=== PATIENT | male | born 1990 | race American Indian/Alaskan Native ===

== ENCOUNTER 2020-02-28 20:27 | Emergency (ER) | payer OTHER ==
[2020-02-28 20:39] VITALS: BP 139/80
--- NOTE | 2020-02-28 20:52 | Emergency Department Report ---
Chief Complaint: Headache Stated Complaint: THROAT,NECK,HEAD PAIN,FEVER Time Seen by Provider: 02/28/20 20:39 - Exam Vital Signs: Vital Signs 02/28/20 20:37 Temperature 98.4 F Pulse Rate 71 Respiratory 18 Rate Blood Pressure 139/80 O2 Sat by Pulse 100 Oximetry MSE screening note: Focused history and physical exam performed. Due to findings the following was ordered: ED Disposition for MSE Clinical Impression: Nasal congestion Disposition: MED SCREENING EXAM-LEFT Is pt being admited?: No Does the pt Need Aspirin: No Condition: Stable Referrals: PRIMARY CARE, [Primary Care Provider] - 3-5 Days
--- NOTE | 2020-02-28 21:01 | Emergency Department Report ---
Chief Complaint: Headache Stated Complaint: THROAT,NECK,HEAD PAIN,FEVER Time Seen by Provider: 02/28/20 20:39 - HPI History of Present Illness: 29-year-old -Iranian male presents to the emergency room stating that his job sent him here because they thought he did not feel good. Patient states that he has some nasal congestion. Patient denies any fever chills denies any shortness of breath chest pain nausea vomiting diarrhea. - Exam Vital Signs: Vital Signs 02/28/20 02/28/20 20:37 20:38 Temperature 98.4 F 98.4 F Pulse Rate 71 74 Respiratory 18 18 Rate Blood Pressure 139/80 O2 Sat by Pulse 100 100 Oximetry Physical Exam: Gen: alert oriented NAD Cardic: regular rate and rhythm no murmurs appreciated Resp: Clear to auscultation bilateral no wheezing no rales or rhonchi. Abdomen: Soft nontender nondistended normal bowel sounds. Mini neuro: Normal finger to nose exam, [id number] normal, Romberg neg, strengh 4/5 all extrimities, Alert and oriented time 3 Crainal nerve II-IIX intact MSE screening note: Focused history and physical exam performed. Due to findings the following was ordered: 29-year-old -Iranian male presents to the emergency room stating that his job sent him here because they thought he did not feel good. Patient states that he has some nasal congestion. Patient denies any fever chills denies any shortness of breath chest pain nausea vomiting diarrhea. ED Disposition for MSE Clinical Impression: Nasal congestion Disposition: Z- MED SCREENING EXAM-LEFT Is pt being admited?: No Does the pt Need Aspirin: No Condition: Stable Instructions: Acute Bacterial Rhinosinusitis (ED), Loratadine/Pseudoephedrine (By mouth) Additional Instructions: Try taking [id number] Claritin-D as well as Flonase and or Nasonex. You can take Tylenol or ibuprofen as needed for pain. Follow-up with your primary care provider or urgent care. Referrals: PRIMARY CARE, [Primary Care Provider] - 3-5 Days CJ MEJIA MD [Staff Physician] - 3-5 Days Forms: Work/School Release Form(ED)
== END 2020-02-28 21:06 | disposition left against medical advice (07) ==
LOC: ED 20:27
DX: R09.81 Nasal congestion (principal); R07.0 Pain in throat; M54.2 Cervicalgia; R51 Headache
CPT/HCPCS: 99282

== ENCOUNTER 2020-04-01 18:03 | Emergency (ER) | payer OTHER ==
--- NOTE | 2020-04-01 19:29 | XRay Report ---
Left foot, 3 views INDICATION: Pain following injury today FINDINGS: The joint space is maintained. There is no fracture or dislocation. No spurring or arthriti c change. No bone lesion or periostitis. No significant abnormality. IMPRESSION: Negative study Signer Name: Ephraim Lund MD Signed: 04/01/2020 7:24 PM Workstation Name: [id number]
[2020-04-01] MEDS ORDERED: oxyCODONE /ACETAMINOPHEN 5-325MG TAB PO ONE (19:38)
[2020-04-01 19:49] VITALS: BP 128/69
--- NOTE | 2020-04-01 19:49 | Emergency Department Report ---
ED Lower Extremity HPI - General Chief Complaint: Extremity Injury, Lower Stated Complaint: LEFT FOOT PAIN Time Seen by Provider: 04/01/20 19:37 Source: patient Mode of arrival: Ambulatory Limitations: No Limitations - History of Present Illness Initial Comments: [id number] male was at work when a candida fell on his foot causing a crush injury with those ago that was followed by pain and swelling worse with ambulation and palpation. Reports emergency department for evaluation of the foot as he is worried about possible fracture -: Gradual Injury: Foot: Right Type of Injury: blunt (crush) Severity: mild Improves With: nothing Worsens With: nothing Context: direct blow Associated Symptoms: able to partially bear weight - Related Data Previous Rx's Medication Instructions Recorded Last Taken Type Ketorolac [Toradol] 10 mg PO Q6H PRN #14 tablet 04/01/20 Unknown Rx Allergies Allergy/AdvReac Type Severity Reaction Status Date / Time No Known Allergies Allergy Verified 04/01/20 18:20 ED Review of Systems ROS: Stated complaint: LEFT FOOT PAIN Other details as noted in HPI Comment: All other systems reviewed and negative ED Past Medical Hx - Past Medical History Previous Medical History?: No - Surgical History Past Surgical History?: No - Social History Smoking Status: Never Smoker Substance Use Type: None - Medications Home Medications: Home Medications Medication Instructions Recorded Confirmed Last Taken Type Ketorolac [Toradol] 10 mg PO Q6H PRN #14 tablet 04/01/20 Unknown Rx ED Physical Exam - General Limitations: No Limitations General appearance: alert, in no apparent distress - Head Head exam: Present: atraumatic, normocephalic - Eye Eye exam: Present: normal appearance, PERRL Pupils: Present: normal accommodation - ENT ENT exam: Present: mucous membranes moist - Neck Neck exam: Present: normal inspection - Respiratory Respiratory exam: Present: normal lung sounds bilaterally. Absent: respiratory distress - Cardiovascular Cardiovascular Exam: Present: regular rate, normal rhythm. Absent: systolic murmur, diastolic murmur, rubs, gallop - GI/Abdominal GI/Abdominal exam: Present: soft, normal bowel sounds - Rectal Rectal exam: Present: deferred - Extremities Exam Extremities exam: Present: normal inspection, tenderness, normal capillary refill, other (Pain swelling to the foot no ecchymosis is noted there is tenderness noted. Capillary refills are brisk pulses 2+ to the dorsalis pedis posterior tibialis) - Back Exam Back exam: Present: normal inspection. Absent: CVA tenderness (R), CVA tenderness (L) - Neurological Exam Neurological exam: Present: alert, oriented X3, CN II-XII intact, normal gait - Psychiatric Psychiatric exam: Present: normal affect, normal mood - Skin Skin exam: Present: warm, dry, intact, normal color. Absent: rash ED Course Vital Signs 04/01/20 04/01/20 04/01/20 18:06 18:21 19:47 Temperature 98.1 F 98.0 F Pulse Rate 99 H 60 Respiratory 20 16 Rate Blood Pressure 133/63 Blood Pressure 128/69 [Left] O2 Sat by Pulse 98 100 Oximetry ED Lower Extremity MDM - Radiology Data Radiology results: report reviewed (No acute processes) Critical care attestation.: If time is entered above; I have spent that time in minutes in the direct care of this critically ill patient, excluding procedure time. ED Disposition Clinical Impression: Injury, crush, foot Disposition: DC-01 TO HOME OR SELFCARE Is pt being admited?: No Does the pt Need Aspirin: No Condition: Stable Instructions: Foot Contusion (ED), RICE Therapy (ED), Ice Pack Application (ED) Prescriptions: Ketorolac [Toradol] 10 mg PO Q6H PRN #14 tablet PRN Reason: Pain Referrals: [facility] [Provider Group] - 3-5 Days Forms: Work/School Release Form
== END 2020-04-01 20:18 | disposition home or self-care (01) ==
LOC: ED 18:03
DX: S99.922A Unspecified injury of left foot, initial encounter (principal); Z79.899 Other long term (current) drug therapy; W18.30XA Fall on same level, unspecified, initial encounter; Y93.89 Activity, other specified; Y92.89 Other specified places as the place of occurrence of the external cause; Y99.8 Other external cause status